=== PATIENT | male | born 1960 | race Two or more races ===

== ENCOUNTER 2020-11-24 03:49 | Emergency (ER) | payer OTHER ==
[~2020-11-24] VITALS: Ht 177.8 cm; Wt 79.4 kg
[2020-11-24 07:38] VITALS: BP 127/60
== END 2020-11-24 09:59 | disposition home or self-care (01) ==
LOC: EDBD 03:49 → ER 03:55
DX: S16.1XXA Strain of muscle, fascia and tendon at neck level, initial encounter (principal); W19.XXXA Unspecified fall, initial encounter; Y93.89 Activity, other specified; Y92.89 Other specified places as the place of occurrence of the external cause; Y99.8 Other external cause status
CPT/HCPCS: 70450; 72040